=== PATIENT | male | born 1985 | race Hispanic/Latino ===

== ENCOUNTER 2025-07-13 13:12 | Emergency (ER) | payer OTHER, SELFPAY ==
[2025-07-13] MEDS ORDERED: NA CHLORIDE 0.9% 1,000 ML ONE (13:39)
[2025-07-13] MEDS ORDERED: ONDANSETRON 4 MG/2 ML VIAL ONE (13:39)
[2025-07-13 13:49] LABS: Absolute Lymphocytes (CBC) 1.7 K/uL (0.7-4.9); Hematocrit 49.2 % (39.6-49.0); Hemoglobin 16.6 g/dL (13.6-17.9); MCH 29.5 pg (27.0-35.0); MCHC 33.7 g/dL (32.0-36.0); MCV 87.4 fL (80-100); MPV 8.5 fL (7.6-11.3); Nucleated RBC Absolute Count 0.0 (0-0); Nucleated Red Blood Cells % 0.1 % (0-0); RBC Red Blood Cell Count 5.63 M/uL (4.33-5.43); White Blood Count 8.40 thou/uL (4.3-10.9)
[2025-07-13 14:12] LABS: ALT/SGPT 38.0 U/L (16-61); AST/SGOT 26.0 U/L (15-37); Albumin 4.4 g/dL (3.4-5.0); Albumin/Globulin Ratio 1.1 (1.1-1.8); Alkaline Phosphatase 108.0 U/L (45-117); Anion Gap 13.8 mEq/L (5.0-15.0); BUN Blood Urea Nitrogen 18.0 mg/dL (7-18); Bilirubin Indirect, Calculated 1.4 mg/dL (0.2-0.8); Globulin 3.9 g/dL (2.3-3.5); Glucose Level 123.0 mg/dL (74-106); Potassium 3.8 mEq/L (3.5-5.1)
--- NOTE | 2025-07-13 14:55 | RAD REPORT ---
EXAM: CT Head Brain Wo Cont HISTORY: AMS, possible seizure COMPARISON: None TECHNIQUE: Multiple contiguous axial images were obtained for a CT of the brain without contrast. Sag ittal and coronal reformats were performed. One or more of the following dose reduction techniques were used: Automated exposure control, adjus tment of the mA and kV according to patient size, and iterative reconstruction. Unless otherwise specified, incidental findings do not require dedicated imaging follow-up. FINDINGS: No evidence of hydrocephalus, intracranial hemorrhage, or extra-axial fluid collection. The brain is normal in morphology. The calvarium is intact. The visualized paranasal sinuses and mastoid air cells are essentially clear . IMPRESSION: No evidence of acute intracranial abnormality.
--- NOTE | 2025-07-13 15:50 | ER ---
Nurse's Notes [facility] Name: Juanjose Valdez Age: 39 yrs Sex: Male : 1985 Arrival Date: 07/13/2025 Time: 13:12 Bed 20 Private MD: Diagnosis: Adverse effect of synthetic marijuana use, uncomplicated Presentation: 07/13 13:20 Chief complaint: EMS states: toned out for patient seizing in front of 7-11, Confused, me1 restless, unable to identify himself at first but able to give his name prior to arrival to ER. Coronavirus screen: At this time, the client does not indicate any symptoms associated with coronavirus-19. Ebola Screen: No symptoms or risks identified at this time. Risk Assessment: Do you want to hurt yourself or someone else? Patient reports no desire to harm self or others. Onset of symptoms is unknown. 13:20 Method Of Arrival: EMS: [facility] [place] 13:20 Acuity: ZACHERY 3 [facility] [place] 13:20 Initial Sepsis Screen: Does the patient meet any 2 criteria? HR > 90 bpm. Does the nd1 patient have a suspected source of infection? No. Patient's initial sepsis screen is negative. Triage Assessment: 13:22 General: Appears unkempt, Behavior is cooperative, anxious, restless, Reports he smoked me1 some "synthetic" about lunchtime. Pain: Denies pain. EENT: No signs and/or symptoms were reported regarding the EENT system. Neuro: Level of Consciousness is awake, alert, obeys commands, confused, Oriented to person, place, situation, unable to remember birthday, allergies, medical history. . Neuro: Seizure activity possible seizure before EMS got to patient. It was reported to EMS by whoever called them. Cardiovascular: Patient's skin is warm and dry. Respiratory: Airway is patent Respiratory effort is even, unlabored, Respiratory pattern is regular, symmetrical. GI: Reports nausea, vomiting, just after arrival. : No signs and/or symptoms were reported regarding the genitourinary system. Derm: Skin is intact, is healthy with good turgor, Skin is normal. Musculoskeletal: Circulation, motion, and sensation intact. Range of motion: intact in all extremities. Historical: - Allergies: 13:22 Unable to obtain; me1 - Immunization history:: Adult Immunizations unknown. - Infectious Disease History:: Denies. - Social history:: Smoking status: unknown. - Family history:: not pertinent. - Hospitalizations: : No recent hospitalization is reported. Screenin:27 [facility] ED Fall Risk Assessment (Adult) History of falling in the last 3 months, me1 including since admission No falls in past 3 months (0 pts) Confusion or Disorientation Yes (5 pts) Intoxicated or Sedated No (0 pts) Impaired Gait Yes (1 pt) Mobility Assist Device Used No (0 pt) Altered Elimination No (0 pt) Score/Fall Risk Level 0 - 2 = Low Risk Maintained a safe environment, Provided non-skid footwear, Hourly rounding (assess needs \\T\\ fall precautionary measures) done. Abuse screen: Denies threats or abuse. Nutritional screening: No deficits noted. Tuberculosis screening: No symptoms or risk factors identified. Assessment: 13:27 General: See triage assessment. me1 Vital Signs: 13:20 BP 137 / 77; Pulse 105; Resp 17; Temp 98.2; Pulse Ox 98% ; Weight 95.71 kg; me1 14:00 BP 137 / 98; Pulse 78; Resp 16; Pulse Ox 98% ; me1 15:00 BP 138 / 92; Pulse 67; Resp 15; Pulse Ox 100% ; me1 16:00 BP 139 / 92; Pulse 75; Resp 16; Temp 98.3; Pulse Ox 100% ; me1 ED Course: 13:14 Patient arrived in ED. bc6 13:16 Bassem Fulton MD is Attending Physician. rn 13:19 Ramya Cramer, JOSELUIS is Primary Nurse. me1 13:22 Triage completed. me1 13:22 Arm band placed on Patient placed in an exam room. me1 13:27 Patient has correct armband on for positive identification. Bed in low position. Call [facility] [place] light in reach. Side rails up X2. Provided Education on: POC. Verbalized understanding.. Client placed on continuous cardiac and pulse oximetry monitoring. NIBP monitoring applied. cardiac monitor on. Pulse ox on. NIBP on. 13:27 No provider procedures requiring assistance completed. me1 13:46 Initial lab(s) drawn, by nd, sent to lab. Inserted saline lock: 22 gauge in right nd1 forearm, using aseptic technique. 13:55 CBC with Diff Sent. me1 13:55 Basic Metabolic Panel Sent. me1 13:55 ETOH Level Sent. me1 13:55 LFT's Sent. me1 14:00 CT Head Brain wo Cont In Process Unspecified. EDMS 16:08 IV discontinued, intact, bleeding controlled, No redness/swelling at site. Pressure me1 dressing applied. Administered Medications: 13:54 Drug: Ondansetron IVP 4 mg IVP once; over 2 minutes Route: IVP; Site: right forearm; me1 15:41 Follow up: Response: No adverse reaction; Nausea is decreased me1 13:55 Drug: NS 0.9% IV 1000 ml IV at 1000 ml once; to be given as a bolus over 60 minutes me1 Route: IV; Rate: 1000 ml; Site: right forearm; 16:07 Follow up: Response: No adverse reaction; IV Status: Completed infusion; IV Intake: me1 1000ml Medication: 13:27 VIS not applicable for this client. me1 Intake: 16:07 IV: 1000ml; Total: 1000ml. me1 Outcome: 15:50 Discharge ordered by . rn 16:08 Discharged to home ambulatory, in [facility]. Showed patient where phone is and how to use nd1 it to call for a ride. 16:08 Condition: stable 16:08 Discharge instructions given to patient, Instructed on discharge instructions, follow up and referral plans. Demonstrated understanding of instructions, follow-up care, 16:08 Patient left the ED. me1 Signatures: Dispatcher [employer] Bassem Becker MD MD rn [place], [facility] Ramya Cramer RN RN me1 Corrections: (The following items were deleted from the chart) 13:23 13:22 Allergies: No Known Allergies; me1 me1 13:27 13:20 95.71 kg; me1 me1
--- NOTE | 2025-07-13 15:51 | EDPHYS ---
Physician Documentation [facility] Name: Juanjose Valdez Age: 39 yrs Sex: Male : 1985 Arrival Date: 07/13/2025 Time: 13:12 Bed 20 Private MD: ED Physician Bassem Fulton HPI: 07/13 15:41 This 39 yrs old Male presents to ER via EMS with complaints of Altered Mental rn Status. 15:41 The patient presents with confusion, decreased mental status. Onset: The rn symptoms/episode began/occurred just prior to arrival. Patient reports use synthetic marijuana around lunchtime, was confused and altered. Denies any other drug use. No fever or chills. EMS reports possible seizure. Just before I walked into room patient was vomiting and patient states he feels better. Denies any other drug use. No head injury. No history of seizures outside of drug use.. Historical: - Allergies: 13:22 Unable to obtain; me1 - Immunization history:: Adult Immunizations unknown. - Infectious Disease History:: Denies. - Social history:: Smoking status: unknown. - Family history:: not pertinent. - Hospitalizations: : No recent hospitalization is reported. ROS: 15:41 Constitutional: Negative for fever, chills, and weight loss, Cardiovascular: Negative rn for chest pain, palpitations, and edema, Respiratory: Negative for shortness of breath, cough, wheezing, and pleuritic chest pain, Abdomen/GI: Negative for abdominal pain, diarrhea, and constipation, MS/Extremity: Negative for injury and deformity, Skin: Negative for injury, rash, and discoloration, Neuro: Negative for headache, weakness, numbness, tingling Exam: 15:41 Constitutional: This is a well developed, well nourished patient who is awake, alert, rn and in no acute distress. ENT: Nares patent. No nasal discharge, no septal abnormalities noted. Tympanic membranes are normal and external auditory canals are clear. Oropharynx with no redness, swelling, or masses, exudates, or evidence of obstruction, uvula midline. Mucous membranes moist. Cardiovascular: Regular rate and rhythm. No pulse deficits. Respiratory: No increased work of breathing, no retractions or nasal flaring. Neuro: Awake and alert, GCS 15, oriented to person, place, time, and situation. Cranial nerves II-XII grossly intact. Motor strength 5/5 in all extremities. Sensory grossly intact. 15:48 ECG was reviewed by the Attending Physician. rn Vital Signs: 13:20 BP 137 / 77; Pulse 105; Resp 17; Temp 98.2; Pulse Ox 98% ; Weight 95.71 kg; me1 14:00 BP 137 / 98; Pulse 78; Resp 16; Pulse Ox 98% ; me1 15:00 BP 138 / 92; Pulse 67; Resp 15; Pulse Ox 100% ; me1 16:00 BP 139 / 92; Pulse 75; Resp 16; Temp 98.3; Pulse Ox 100% ; me1 MDM: 13:16 Medical Screening Exam initiated rn 15:44 Differential Diagnosis: volume depletion, Adverse effect of synthetic marijuana, rn seizure, syncope, dehydration. Data reviewed: vital signs, nurses notes, lab test result(s), EKG, radiologic studies, CT scan, and as a result, I will discharge patient. 15:48 Care significantly affected by the following chronic conditions: Hypertension. rn Counseling: I had a detailed discussion with the patient and/or guardian regarding the historical points, exam findings, and any diagnostic results supporting the discharge/admit diagnosis, lab results, radiology results, the need for outpatient follow up, to return to the emergency department if symptoms worsen or persist or if there are any questions or concerns that arise at home. Counseling: I had a detailed discussion with the patient and/or guardian regarding the presence of at least one elevated blood pressure reading (>120/80) during this emergency department visit. Response to treatment: the patient's symptoms have markedly improved after treatment, the patient's symptoms have resolved after treatment, the patient's condition has returned to base line, the patient is now symptom free, and as a result, I will discharge patient. Special discussion: I have referred the patient to see his PCP for further evaluation of high blood pressure. I discussed with the patient/guardian in detail that at this point there is no indication for admission to the hospital. It is understood, however, that if the symptoms persist or worsen the patient needs to return immediately for re-evaluation. ED course: Patient feels much better, no further seizure activity. No seizures witnessed here. Patient status post adverse effect of synthetic marijuana. CT head negative, labs unremarkable for emergent findings. Patient states feels much better and will get a ride home. Request to be discharged home at this time. Recommend cessation of drug use.. 07/13 13:18 Order name: CBC with Diff; Complete Time: 14:17 rn 07/13 13:18 Order name: Basic Metabolic Panel; Complete Time: 14:17 rn 07/13 13:18 Order name: LFT's; Complete Time: 14:17 rn 07/13 13:18 Order name: ETOH Level; Complete Time: 14:17 rn 07/13 13:18 Order name: CT Head Brain wo Cont; Complete Time: 15:16 rn 07/13 13:18 Order name: EKG; Complete Time: 13:18 rn 07/13 13:18 Order name: IV Start; Complete Time: 13:55 rn 07/13 13:18 Order name: EKG - Nurse/Tech; Complete Time: 14:20 rn 07/13 13:18 Order name: Cardiac monitoring; Complete Time: 14:20 rn EC:48 Rate is 90 beats/min. Rhythm is regular. QRS Baker is Normal. DE interval is normal. QRS rn interval is normal. QT interval is normal. No Q waves. T waves are Normal. No ST changes noted. Clinical impression: Normal ECG. Interpreted by me. Reviewed by me. Administered Medications: 13:54 Drug: Ondansetron IVP 4 mg IVP once; over 2 minutes Route: IVP; Site: right forearm; me1 15:41 Follow up: Response: No adverse reaction; Nausea is decreased me1 13:55 Drug: NS 0.9% IV 1000 ml IV at 1000 ml once; to be given as a bolus over 60 minutes me1 Route: IV; Rate: 1000 ml; Site: right forearm; 16:07 Follow up: Response: No adverse reaction; IV Status: Completed infusion; IV Intake: me1 1000ml Disposition Summary: 07/13/25 15:50 Discharge Ordered Notes: Location: Home rn Problem: new rn Symptoms: have improved rn Condition: Stable rn Diagnosis - Adverse effect of synthetic marijuana use, uncomplicated rn Followup: rn - With: Private Physician - When: As needed - Reason: Recheck today's complaints, Re-evaluation by your physician Discharge Instructions: - Discharge Summary Sheet rn - Accidental Drug Poisoning, Adult rn Forms: - Medication Reconciliation Form rn - Antibiotic inpatient care manager rn - Prescription Opioid Use rn - Patient Portal Instructions rn - Leadership Thank You Letter rn Signatures: Dispatcher [employer] Bassem Becker MD MD rn Eddleman, Michelle, RN RN me1 Corrections: (The following items were deleted from the chart) 13:23 13:22 Allergies: No Known Allergies; me1 me1 15:47 15:41 Constitutional: This is a well developed, well nourished patient who is awake, rn alert, and in no acute distress. ENT: Nares patent. No nasal discharge, no septal abnormalities noted. Tympanic membranes are normal and external auditory canals are clear. Oropharynx with no redness, swelling, or masses, exudates, or evidence of obstruction, uvula midline. Mucous membranes moist. rn
[2025-07-13 16:27] VITALS: O2SAT 100
[2025-07-13 16:29] VITALS: BP 139/92; TEMP 98.3
== END 2025-07-13 16:08 | disposition home or self-care (01) ==
LOC: ER 13:12
DX: R41.82 Altered mental status, unspecified (principal); T40.715A Adverse effect of cannabis, initial encounter
CPT/HCPCS: 36415; 70450; 80048; 80076; 82077; 85025; 93005; 96361; 96374; 99285; J2405; J7030